=== PATIENT | female | born 1985 | race Hispanic/Latino ===

== ENCOUNTER 2016-08-27 10:20 | Emergency (ER) | payer OTHER, MEDICARE ==
--- NOTE | 2016-08-27 10:35 | C.PDOC ---
History Of Present Illness 30 year old female who presents to the ER with a complaint of constant upper abdominal pain since last night, associated with some nausea. Patient reports having the same pain 3 months ago while in [place]; states she was hospitalized for a week and was diagnosed with colitis at the time. Since then patient reports the pain went away until last night. Patient reports having a Hx gastric bypass in 2008 and hernia repair in 2010; no issues since then. When asked initially patient denied use of medication at home; upon questioning and reviewing of [facility], it was found that she has been refilling a Rx for Suboxone. Patient admits to Suboxone use but states she stopped 3 days ago because of a therapy program. Patient also reports she snorts heroin, last use was 2 weeks ago. Denies fever, chills, or vomiting. Time Seen by Provider: 08/27/16 10:35 Chief Complaint (Nursing): Abdominal Pain History Per: Patient History/Exam Limitations: no limitations Onset/Duration Of Symptoms: Hrs Current Symptoms Are (Timing): Still Present Location Of Pain/Discomfort: Other (Upper) Radiation Of Pain To:: None Quality Of Discomfort: Unable To Describe Associated Symptoms: Nausea. denies: Fever, Vomiting Exacerbating Factors: None Alleviating Factors: None Recent travel outside of the [place]: No Abnormal Vaginal Bleeding: No Past Medical History Reviewed: Historical Data, Nursing Documentation, Vital Signs Vital Signs: Last Vital Signs Temp 98.3 F 08/27/16 14:44 Pulse 51 L 08/27/16 14:44 Resp 16 08/27/16 14:44 BP 106/68 08/27/16 14:44 Pulse Ox 100 08/27/16 14:54 - Medical History PMH: Back Problems Surgical History: Back Surgery Other Surgeries: Gastric Bypass - 2008. Hernia repair - 2010. - [facility] Procedures INJECT/INFUSE NEC (09/09/06) Family History: States: Unknown Family Hx - Social History Hx Tobacco Use: Yes Hx Alcohol Use: No Hx Substance Use: Yes - Immunization History Hx Tetanus Toxoid Vaccination: No Hx Influenza Vaccination: No Hx Pneumococcal Vaccination: No Review Of Systems Constitutional: Negative for: Fever, Chills Cardiovascular: Negative for: Chest Pain Respiratory: Negative for: Cough, Shortness of Breath Gastrointestinal: Positive for: Abdominal Pain (Upper). Negative for: Nausea, Vomiting, Diarrhea Neurological: Negative for: Weakness, Numbness Physical Exam - Physical Exam Appears: Non-toxic Skin: Normal Color, Warm, Dry Head: Atraumatic, Normacephalic Oral Mucosa: Moist Chest: Symmetrical, No Tenderness Cardiovascular: Rhythm Regular, No Murmur Respiratory: Normal Breath Sounds, No Rales, No Rhonchi, No Wheezing Gastrointestinal/Abdominal: Soft, Tenderness (Epigastric and LUQ) Back: Normal Inspection, No CVA Tenderness Neurological/Psych: Oriented x3, Normal Speech, Normal Cognition, Other (No focal deficits) ED Course And Treatment - Laboratory Results Result Diagrams: 08/27/16 11:08 08/27/16 11:08 O2 Sat by Pulse Oximetry: 100 (Room air) Pulse Ox Interpretation: Normal - CT Scan/US CT abd/pel Other Rad Studies (CT/US): Read By Radiologist, Radiology Report Reviewed CT/US Interpretation: PROCEDURE: CT pelvis dated 08/27/2016. HISTORY: abd pain. COMPARISON: None. TECHNIQUE: Contiguous axial images of the abdomen and pelvis performed following intravenous injection of approximately 100 cc Visipaque 320 contrast material. . Coronal and Sagittal reformats generated. Radiation dose: Total exam DLP = 602.98 mGy-cm. This CT exam was performed using one or more of the following dose reduction techniques: Automated exposure control, adjustment of the mA and/or kV according to patient size, and/ or use of iterative reconstruction technique. FINDINGS: LOWER THORAX: Unremarkable. LIVER: Liver is enlarged measuring just over 20 cm in CC dimension. No obvious hepatic mass collection or calcification. Portal and splenic veins are opacified. GALLBLADDER AND BILE DUCTS: Gallbladder is physiologically distended. No evidence of intraluminal gallbladder calculi. Mildly prominent common bile duct. PANCREAS: No definitive pancreatic mass collection or calcification. Pancreatic duct is visible though does not appear significantly dilated. SPLEEN: Spleen exhibits normal size and attenuation pattern without mass collection or calcification. ADRENALS: No adrenal lesions are is identified. KIDNEYS AND URETERS: Kidneys exhibit symmetric nephrograms. No evidence of nephrolithiasis or hydronephrosis. BLADDER: Urinary bladder is physiologically distended. No evidence of intraluminal urinary bladder calculi. REPRODUCTIVE: Unremarkable. APPENDIX: What is felt to represent a normal-appearing retrocecal appendix best seen on axial image number [id number]. BOWEL: Post surgical changes of the stomach consistent with got gastric bypass surgery. Oral contrast material has extended into the distal small bowel without evidence of obstruction. Stool and air seen throughout the colon. Note is made of mild thickening of the wall of the cecum, proximal ascending colon, a short of the splenic flexure and rectum. While some of the findings could be due to peristalsis and under opacified adherent stool, the possibility of a colitis must be considered as well. PERITONEUM: No evidence of free loculated intraperitoneal fluid collections. No gross free intraperitoneal air. LYMPH NODES: Unremarkable. No enlarged lymph nodes. VASCULATURE: Unremarkable. No aortic aneurysm. BONES: Bilateral laminectomy changes and posterior fixation L5-S1 level. There is slight anterior subluxation L5 over S1. OTHER FINDINGS: None. IMPRESSION: Mild hepatomegaly. Mild fatty hepatic infiltration. Findings consistent with gastric bypass surgery. No evidence of acute mechanical bowel obstruction. Note is made of mild thickening of the wall of the cecum, proximal ascending colon, a short of the splenic flexure and rectum. While some of the findings could be due to peristalsis and under opacified adherent stool, the possibility of a colitis must be considered as well. Note these findings were discussed with Dr. Gastelum at 2:20 p.m. with written down and read back verification Progress Note: EKG and CT abd/pel w/ PO & IV contrast ordered. Morphine, zofran , and IV fluids administered. Disposition - Disposition Referrals: [facility] at [facility] [Outside] Disposition: HOME/ ROUTINE Disposition Time: 15:09 Condition: IMPROVED Additional Instructions: Please follow up with a primary doctor in 1 week. Return to the ER for any worsening symptoms, fever, repeated vomiting, or for any other concerns. You were given narcotic pain medication as part of your emergency treatment. Prescriptions: Ciprofloxacin HCl [Cipro] 500 mg PO BID #20 tablet Metronidazole [Flagyl] 500 mg PO TID #30 tablet Ondansetron ODT [Zofran ODT] 4 mg PO Q4H PRN #10 odt PRN Reason: Nausea/Vomiting Instructions: Colitis (ED) Forms: General Discharge Instructions, Work Excuse - Clinical Impression Clinical Impression: Colitis - Scribe Statement The provider has reviewed the documentation as recorded by the Scribe Noel Rider All medical record entries made by the Nissaibmiriam were at my direction and personally dictated by me. I have reviewed the chart and agree that the record accurately reflects my personal performance of the history, physical exam, medical decision making, and the department course for this patient. I have also personally directed, reviewed, and agree with the discharge instructions and disposition.
[2016-08-27] MEDS ORDERED: Sodium Chloride 0.9% 1,000 ML IV ONE ×2 (10:59→12:20)
[2016-08-27] MEDS ORDERED: Sodium Chloride 0.9% 1,000 ML ONE ×2 (11:02→12:23)
[2016-08-27 11:15] LABS: BASO # 0.1 K/uL (0.0-0.2); BASO % 0.9 % (0.0-2.0); EOS % 0.2 % (0.0-4.0); LYMPH # 3.4 K/uL (1.0-4.3); LYMPH % 29.4 % (20.0-40.0); MEAN CELL VOLUME 79.7 fL (81.0-99.0); MEAN CORPUSCULAR HEMOGLOBIN 25.2 pg (27.0-31.0); MEAN CORPUSCULAR HGB CONC 31.7 g/dL (33.0-37.0); MEAN PLATELET VOLUME 7.9 fL (7.2-11.7); MONO # 0.6 K/uL (0.0-0.8); MONO % 5.1 % (0.0-10.0); NEUT # 7.4 K/uL (1.8-7.0); NEUT % 64.4 % (50.0-75.0); RBC 4.78 Mil/uL (3.80-5.20); RED CELL DISTRIBUTION WIDTH 18.2 % (11.5-14.5); WHITE BLOOD COUNT 11.5 K/uL (4.8-10.8)
[2016-08-27 11:20] LABS: HCG,QUALITATIVE URINE NEGATIVE (NEGATIVE)
[2016-08-27 11:21] LABS: ALBUMIN 3.7 g/dL (3.5-5.0)
[2016-08-27 11:24] LABS: ALB/GLOB RATIO 1.1 (1.0-2.1); ALT/SGPT 11 U/L (9-52); AST/SGOT 12 U/L (14-36); BLOOD UREA NITROGEN 10 mg/dL (7-17); GFR AFRICAN-AMERICAN > 60; GFR NON-AFRICAN AMERICAN > 60; LIPASE 41 U/L (23-300)
[2016-08-27 11:25] LABS: CALCIUM 9.1 mg/dl (8.6-10.4)
[2016-08-27 11:26] LABS: SQUAMOUS EPITHIAL 3 /hpf (0-5); URINE BACTERIA RARE (<OCC); URINE BILIRUBIN NEGATIVE (NEGATIVE); URINE BLOOD NEGATIVE (NEGATIVE); URINE CLARITY Clear (Clear); URINE COLOR Yellow (YELLOW); URINE GLUCOSE (UA) NORMAL (Normal); URINE LEUKOCYTE ESTERASE NEG Leu/uL (Negative); URINE NITRATE NEGATIVE (NEGATIVE); URINE PROTEIN NEGATIVE (NEGATIVE)
[2016-08-27] MEDS ORDERED: Iohexol 240 (50 ml) PO ONE (11:52)
[2016-08-27] MEDS ORDERED: Iohexol 240 (50 ml) ONE (11:56)
[2016-08-27] MEDS ORDERED: Morphine 4 MG/ML VIAL ONE ×2 (12:23→14:25)
[2016-08-27] MEDS ORDERED: Iodixanol 320 MG/ML 100 ML BOTTLE IV ONE (12:57)
[2016-08-27] MEDS ORDERED: metroNIDAZOLE IV 500 mg/100 ml 500 MG/100 ML BAG IVPB STA (14:19)
[2016-08-27] MEDS ORDERED: Ciprofloxacin 400mg/200ml D5W 400 MG/200 ML BAG IVPB STA (14:19)
--- NOTE | 2016-08-27 14:22 | CT ---
PROCEDURE: CT pelvis dated 08/27/2016 HISTORY: abd pain COMPARISON: None. TECHNIQUE: Contiguous axial images of the abdomen and pelvis performed following intravenous injection of approximately 100 cc Visipaque 320 contrast material. . Coronal and Sagittal reformats generated. Radiation dose: Total exam DLP = 602.98 mGy-cm. This CT exam was performed using one or more of the following dose reduction techniques: Automated exposure control, adjustment of the mA and/or kV according to patient size, and/or use of iterative reconstruction technique. FINDINGS: LOWER THORAX: Unremarkable. LIVER: Liver is enlarged measuring just over 20 cm in CC dimension. No obvious hepatic mass collection or calcification. Portal and splenic veins are opacified. GALLBLADDER AND BILE DUCTS: Gallbladder is physiologically distended. No evidence of intraluminal gallbladder calculi. Mildly prominent common bile duct. PANCREAS: No definitive pancreatic mass collection or calcification. Pancreatic duct is visible though does not appear significantly dilated. SPLEEN: Spleen exhibits normal size and attenuation pattern without mass collection or calcification. ADRENALS: No adrenal lesions are is identified. KIDNEYS AND URETERS: Kidneys exhibit symmetric nephrograms. No evidence of nephrolithiasis or hydronephrosis. BLADDER: Urinary bladder is physiologically distended. No evidence of intraluminal urinary bladder calculi. REPRODUCTIVE: Unremarkable. APPENDIX: What is felt to represent a normal-appearing retrocecal appendix best seen on axial image number [id number] BOWEL: Post surgical changes of the stomach consistent with got gastric bypass surgery. Oral contrast material has extended into the distal small bowel without evidence of obstruction. Stool and air seen throughout the colon. Note is made of mild thickening of the wall of the cecum, proximal ascending colon, a short of the splenic flexure and rectum. While some of the findings could be due to peristalsis and under opacified adherent stool, the possibility of a colitis must be considered as well. PERITONEUM: No evidence of free loculated intraperitoneal fluid collections. No gross free intraperitoneal air. LYMPH NODES: Unremarkable. No enlarged lymph nodes. VASCULATURE: Unremarkable. No aortic aneurysm. BONES: Bilateral laminectomy changes and posterior fixation L5-S1 level. There is slight anterior subluxation L5 over S1. OTHER FINDINGS: None. IMPRESSION: Mild hepatomegaly. Mild fatty hepatic infiltration. Findings consistent with gastric bypass surgery. No evidence of acute mechanical bowel obstruction. Note is made of mild thickening of the wall of the cecum, proximal ascending colon, a short of the splenic flexure and rectum. While some of the findings could be due to peristalsis and under opacified adherent stool, the possibility of a colitis must be considered as well. Note these findings were discussed with Dr. Gastelum at 2:20 p.m. with written down and read back verification
[2016-08-27] MEDS ORDERED: Ciprofloxacin 400mg/200ml D5W 400 MG/200 ML BAG IVPB ONE (14:25)
[2016-08-27] MEDS ORDERED: metroNIDAZOLE IV 500 mg/100 ml 500 MG/100 ML BAG ONE (14:26)
[2016-08-27 17:31] VITALS: BP 105/71; PULSE 61; RESP 14; TEMP 98.2; O2SAT 99
--- NOTE | 2016-08-28 21:35 | CARD ---
APPROVED REPORT EKG Measurement Heart [id number] <Conclusion> Normal sinus rhythm Possible Left atrial enlargement Borderline ECG
== END 2016-08-27 17:30 | disposition home or self-care (01) ==
LOC: C.ER 10:20
DX: K52.9 Noninfective gastroenteritis and colitis, unspecified (principal)
CPT/HCPCS: 74177; 80053; 81001; 83690; 84703; 85025; 93005; 96361; 96365; 96367; 96375; 96376; 99285; J0744; J2270; J2405; J7040; Q9966; Q9967

== ENCOUNTER 2018-06-24 12:28 | Emergency (ER) | payer MEDICAID, OTHER ==
[2018-06-24 12:52] VITALS: BP 134/79; PULSE 87; RESP 20; TEMP 98.1; O2SAT 97
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
[2018-06-24 13:55] LABS: BASO % 0.4 % (0.0-2.0); EOS % 0.1 % (0.0-4.0); HEMOGLOBIN 12.3 g/dL (11.0-16.0); LYMPH # 1.5 K/uL (1.0-4.3); LYMPH % 11.4 % (20.0-40.0); MEAN CORPUSCULAR HEMOGLOBIN 29.4 pg (27.0-31.0); MEAN CORPUSCULAR HGB CONC 33.2 g/dL (33.0-37.0); MEAN PLATELET VOLUME 7.7 fL (7.2-11.7); NEUT # 10.4 K/uL (1.8-7.0); NEUT % 80.1 % (50.0-75.0); RBC 4.18 Mil/uL (3.80-5.20); RED CELL DISTRIBUTION WIDTH 19.4 % (11.5-14.5)
[2018-06-24 13:57] LABS: MEAN CELL VOLUME 88.7 fL (81.0-99.0)
[2018-06-24 14:12] LABS: ALB/GLOB RATIO 1.4 (1.0-2.1); ALBUMIN 3.6 g/dL (3.5-5.0); ALT/SGPT 19 U/L (9-52); AST/SGOT 34 U/L (14-36); BLOOD UREA NITROGEN 6 mg/dL (7-17); CALCIUM 8.4 mg/dl (8.6-10.4); GFR NON-AFRICAN AMERICAN > 60
== END 2018-06-24 14:49 | disposition home or self-care (01) ==
LOC: C.ER 12:28
DX: G40.909 Epilepsy, unspecified, not intractable, without status epilepticus (principal)